=== PATIENT | male | born 1955 | race Hispanic/Latino ===

== ENCOUNTER 2017-07-12 16:04 | Observation (INO) | payer MEDICARE, OTHER ==
--- NOTE | 2017-07-12 17:03 | RAD ---
HISTORY: Chest pain COMPARISON: No prior. FINDINGS: LUNGS: The lungs are well inflated and clear. PLEURA: No significant pleural effusion identified, no pneumothorax apparent. CARDIOVASCULAR: Normal. OSSEOUS STRUCTURES: No significant abnormalities. VISUALIZED UPPER ABDOMEN: Normal. OTHER FINDINGS: None. IMPRESSION: No active pulmonary disease.
[2017-07-12 17:05] LABS: BASO # 0.01 K/mm3 (0.0-2.0); BASO % 0.2 % (0.0-3.0); EOS # 0.1 (0.0-0.7); EOS % 1.3 % (1.5-5.0); GRAN # 3.8 (1.4-6.5); GRAN % 70.3 % (50.0-68.0); HEMOGLOBIN 14.9 g/dL (14.0-18.0); LYMPH # 1.2 (1.2-3.4); LYMPH % 22.6 % (22.0-35.0); MEAN CELL VOLUME 82.2 fl (80.0-105.0); MEAN CORPUSCULAR HGB CONC 32.8 g/dl (31.0-37.0); MEAN PLATELET VOLUME 9.5 fl (7.0-11.0); MONO # 0.3 (0.1-0.6); MONO % 5.6 % (1.0-6.0); RBC 5.52 10^6/uL (3.5-6.1); RED CELL DISTRIBUTION WIDTH 13.8 % (11.5-14.5); WHITE BLOOD COUNT 5.4 10^3/ul (4.5-11.0)
[2017-07-12 17:18] LABS: ALB/GLOB RATIO 1.4 (1.1-1.8); ALBUMIN 4.8 g/dL (3.0-4.8); ALT/SGPT 50 U/L (7-56); AST/SGOT 31 U/L (17-59); BLOOD UREA NITROGEN 17 mg/dL (7-21); CALCIUM 10.3 mg/dL (8.4-10.5); GFR AFRICAN-AMERICAN > 60; GFR NON-AFRICAN AMERICAN > 60; LIPASE 139 U/L (23-300); MAGNESIUM 1.9 mg/dL (1.7-2.2)
[2017-07-12 17:35] LABS: TROPONIN I < 0.01 ng/mL
--- NOTE | 2017-07-12 18:58 | CT ---
PROCEDURE: CT HEAD WITHOUT CONTRAST. HISTORY: r/o ICH COMPARISON: None available. TECHNIQUE: Axial computed tomography images were obtained through the head/brain without intravenous contrast. Radiation dose: Total exam DLP = 1038.41 mGy-cm. This CT exam was performed using one or more of the following dose reduction techniques: Automated exposure control, adjustment of the mA and/or kV according to patient size, and/or use of iterative reconstruction technique. FINDINGS: HEMORRHAGE: No intracranial hemorrhage. BRAIN: Byrnes-white matter differentiation is preserved. There is no mass, mass effect or abnormal extra-axial fluid collection. VENTRICLES: The ventricles are normal in size, shape and configuration. CALVARIUM: There is no calvarial fracture or extracranial soft tissue swelling. PARANASAL SINUSES: Predominantly clear. MASTOID AIR CELLS: Predominantly clear. OTHER FINDINGS: None. IMPRESSION: No acute intracranial abnormality.
--- NOTE | 2017-07-12 19:30 | ED PDOC ---
Arrival/HPI - General Chief Complaint: Chest Pain Time Seen by Provider: 07/12/17 16:17 Historian: Patient - History of Present Illness Narrative History of Present Illness (Text): 07/12/17 19:27 A 61 year old male, whose past medical history includes diabetes and hypertension, presents to the emergency department complaining of intermittent substernal chest pain for the past 2-3 days. Patient notes mild nausea and occasional dizziness. She currently denies any pain or discomfort. Patient denies any fever, chills, vomiting, abdominal pain, shortness of breath, cough or any other complaints. 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 He had a stress test done over a year, and has not followed up since. Time/Duration: Other (2-3 days) Symptom Course: Intermittent Context: Home Past Medical History - Provider Review Nursing Documentation Reviewed: Yes - Infectious Disease Hx of Infectious Diseases: None - Cardiac Hx Hypertension: Yes - Pulmonary Hx Asthma: Yes - Endocrine/Metabolic Hx Diabetes Mellitus Type 2: Yes - Psychiatric Hx Substance Use: No Family/Social History - Physician Review Nursing Documentation Reviewed: Yes Family/Social History: CAD/NV (multiple family members with cardiac histories at an early age) Smoking Status: Never Smoked Hx Alcohol Use: Yes Frequency of alcohol use: Socially Hx Substance Use: No Allergies/Home Meds Allergies/Adverse Reactions: Allergies cimetidine [From Tagamet] Allergy (Verified 07/12/17 16:16) ANAPHYLAXIS Home Medications: Home Meds Medication Instructions Recorded Confirmed Unobtainable 07/12/17 07/12/17 Review of Systems - Physician Review All systems were reviewed & negative as marked: Yes - Review of Systems Constitutional: absent: Fevers, Night Sweats Respiratory: absent: SOB, Cough Cardiovascular: Chest Pain Gastrointestinal: Nausea. absent: Abdominal Pain, Vomiting Neurological: Dizziness Physical Exam Vital Signs Reviewed: Yes Vital Signs Temp Pulse Resp BP Pulse Ox 07/12/17 21:00 90 18 137/84 98 07/12/17 16:24 98.6 F 99 H 18 156/104 H 99 Temperature: Afebrile Blood Pressure: Hypertensive Pulse: Tachycardic Respiratory Rate: Normal Appearance: Positive for: Well-Appearing, Non-Toxic, Comfortable Pain Distress: None Mental Status: Positive for: Alert and Oriented X 3 - Systems Exam Head: Present: Atraumatic, Normocephalic Pupils: Present: PERRL Extroacular Muscles: Present: EOMI Conjunctiva: Present: Normal Mouth: Present: Moist Mucous Membranes Neck: Present: Normal Range of Motion Respiratory/Chest: Present: Clear to Auscultation, Good Air Exchange. No: Respiratory Distress, Accessory Muscle Use Cardiovascular: Present: Regular Rate and Rhythm, Normal S1, S2. No: Murmurs Abdomen: Present: Normal Bowel Sounds. No: Tenderness, Distention, Peritoneal Signs Back: Present: Normal Inspection Upper Extremity: Present: Normal Inspection. No: Cyanosis, Edema Lower Extremity: Present: Normal Inspection. No: Edema Neurological: Present: GCS=15, CN II-XII Intact, Speech Normal Skin: Present: Warm, Dry, Normal Color. No: Rashes Psychiatric: Present: Alert, Oriented x 3, Normal Insight, Normal Concentration Medical Decision Making ED Course and Treatment: 07/12/17 19:27 Impression: A 61 year old male with chest pain. Patient notes nausea and dizziness. Plan: -- Head CT -- Chest xray -- EKG -- Labs -- Urinalysis -- Aspirin and Zofran -- Reassess and disposition Progress Notes: EKG shows NSR at 99 BPM with normal intervals, normal axis. Interpreted by me. Report Date : 07/12/2017 17:01:18 Procedure: Chest xray Dictator : Leslie Juarez MD IMPRESSION: No active pulmonary disease. Report Date : 07/12/2017 18:56:33 PROCEDURE: CT HEAD WITHOUT CONTRAST. Dictator : Leslie Juarez MD IMPRESSION: No acute intracranial abnormality. 07/12/17 19:[address] Callaway, who accepts patient admission to telemetry observation. I have discussed the results and plan with the patient, who expresses understanding. - Lab Interpretations Lab Results: 07/12/17 16:45 07/12/17 16:45 Lab Results 07/12/17 16:45: D-Dimer, Quantitative < 200 07/12/17 16:45: Sodium 141, Potassium 4.9, Chloride 102, Carbon Dioxide 29, Anion Gap 15, BUN 17, Creatinine 1.1, Est GFR ( Amer) > 60, Est GFR (Non- Af Amer) > 60, Random Glucose 247 H, Calcium 10.3, Magnesium 1.9, Total Bilirubin 0.4, AST 31, ALT 50, Alkaline Phosphatase 69, Lactate Dehydrogenase 492, Total Creatine Kinase 89, Troponin I < 0.01, Total Protein 8.1, Albumin 4.8 , Globulin 3.3, Albumin/Globulin Ratio 1.4, Lipase 139 07/12/17 16:45: WBC 5.4, RBC 5.52, Hgb 14.9, Hct 45.4, MCV 82.2, MCH 27.0, MCHC 32.8, RDW 13.8, Plt Count 214, MPV 9.5, Gran % 70.3 H, Lymph % (Auto) 22.6, [place] % (Auto) 5.6, Eos % (Auto) 1.3 L, Baso % (Auto) 0.2, Gran # 3.80, Lymph # 1.2, [place] # 0.3, Eos # 0.1, Baso # 0.01 I have reviewed the lab results: Yes - RAD Interpretation Radiology Orders: 07/12/17 16:18 CHEST PORTABLE [RAD] Stat 07/12/17 16:41 HEAD W/O CONTRAST [CT] Stat - Medication Orders Current Medication Orders: Amlodipine Besylate (Norvasc) 5 mg PO DAILY [facility] Insulin Human Regular (Humulin R Med) 0 units SC ACHS [facility] PRN Reason: Protocol Last Admin: 07/12/17 21:48 Dose: Not Given Non-Admin Reason: Blood Sugar Parameter MAR Blood Glucose Document 07/12/17 21:48 CDE (Rec: 07/12/17 21:48 CDE [id number]) Blood Glucose Finger Stick Blood Glucose (70-120) 254 Discontinued Medications Aspirin (Aspirin) 325 mg PO STAT STA Stop: 07/12/17 16:20 Last Admin: 07/12/17 16:40 Dose: 325 mg Diphenhydramine HCl (Benadryl) 25 mg PO ONCE ONE Stop: 07/12/17 22:45 Ondansetron HCl (Zofran Inj) 4 mg IVP STAT STA Stop: 07/12/17 16:20 Last Admin: 07/12/17 16:40 Dose: 4 mg IVP Administration Document 07/12/17 16:40 EQ (Rec: 07/12/17 16:40 EQ [id number]) Charges for Administration # of IVP Administrations 1 - Scribe Statement The provider has reviewed the documentation as recorded by the Nile Dimas Provider Scribe Attestation: All medical record entries made by the Nile were at my direction and personally dictated by me. I have reviewed the chart and agree that the record accurately reflects my personal performance of the history, physical exam, medical decision making, and the department course for this patient. I have also personally directed, reviewed, and agree with the discharge instructions and disposition. Disposition/Present on Arrival - Present on Arrival Any Indicators Present on Arrival: No History of DVT/PE: No History of Uncontrolled Diabetes: No Urinary Catheter: No History of Decub. Ulcer: No History Surgical Site Infection Following: None - Disposition Have Diagnosis and Disposition been Completed?: Yes Diagnosis: Near syncope, Chest pain Disposition: HOSPITALIZED Disposition Time: 19:25 Condition: STABLE
[2017-07-12] MEDS: Insulin Reg-MEDIUM-Coverage SC SCH (21:48)
--- NOTE | 2017-07-12 21:48 | CARD ---
APPROVED REPORT EKG Measurement Heart [id number] NV [id number] [id number] <Conclusion> Normal sinus rhythm Cannot rule out Inferior infarct, age undetermined Abnormal ECG
[2017-07-12 22:34] LABS: URINE BILIRUBIN NEGATIVE (NEGATIVE); URINE BLOOD NEGATIVE (NEGATIVE); URINE GLUCOSE (UA) 500 mg/dL (NEGATIVE); URINE LEUKOCYTE ESTERASE NEGATIVE Leu/uL (NEGATIVE); URINE NITRATE NEGATIVE (NEGATIVE); URINE PROTEIN NEGATIVE mg/dL (<30 mg/dL); URINE UROBILINOGEN 0.2 E.U./dL (<1 E.U./dL)
[2017-07-12 22:36] LABS: URINE APPEARANCE CLEAR (CLEAR); URINE COLOR YELLOW (YELLOW)
[2017-07-13 03:47] LABS: HEMOGLOBIN 14.7 g/dL (14.0-18.0); MEAN CELL VOLUME 82.5 fl (80.0-105.0); MEAN CORPUSCULAR HEMOGLOBIN 27.1 pg (25.0-35.0); MEAN CORPUSCULAR HGB CONC 32.9 g/dl (31.0-37.0); MEAN PLATELET VOLUME 9.5 fl (7.0-11.0); RBC 5.42 10^6/uL (3.5-6.1); RED CELL DISTRIBUTION WIDTH 13.9 % (11.5-14.5)
[2017-07-13 04:05] LABS: ALB/GLOB RATIO 1.4 (1.1-1.8); ALBUMIN 4.5 g/dL (3.0-4.8); ALT/SGPT 51 U/L (7-56); AST/SGOT 33 U/L (17-59); BLOOD UREA NITROGEN 17 mg/dL (7-21); CALCIUM 9.6 mg/dL (8.4-10.5); GFR AFRICAN-AMERICAN > 60; GFR NON-AFRICAN AMERICAN > 60
[2017-07-13 04:20] LABS: TROPONIN I < 0.01 ng/mL
[2017-07-13 05:54] VITALS: O2SAT 97
--- NOTE | 2017-07-13 06:54 | HP ---
HISTORY OF PRESENT ILLNESS: I was called down to the ER to evaluate Nicolas. He comes in with a history of having intermittent chest pain for few days. He is with some mild nauseousness associated with dizziness and chest pain. No fever, chills, or vomiting. PAST MEDICAL HISTORY: Includes diabetes and hypertension and asthma. FAMILY HISTORY: There is CAD and MIs in the family. SOCIAL HISTORY: Never smoked. Occasional alcohol. No substance abuse. ALLERGIES: HE IS ALLERGIC TO TAGAMET. MEDICATIONS: He does not remember the medications he takes. REVIEW OF SYSTEMS: No acute vision or hearing loss. Nothing new. No sore throat. No neck pain. He does have chest pain, little bit of pressure and tightness. No shortness of breath. No coughing. No abdominal pain, nausea, vomiting or constipation or diarrhea. No problems urinating. No leg issues. He moves all 4 extremities, but a little bit dizzy. No swelling. PHYSICAL EXAMINATION GENERAL: He is well appearing. Nontoxic. Alert and oriented x3. VITAL SIGNS: He has 98.6 temperature, 99 pulse, 18 respiratory rate, 166/104 blood pressure, 99% O2 saturation on room air. HEENT: His head is atraumatic and normocephalic. Extraocular muscles are intact. Throat is moist. Thyroid midline. NECK: Supple. CARDIOPULMONARY: Regular rate. LUNGS: Decreased breath sounds, but clear to auscultation. ABDOMEN: Soft. Mildly obese. Nontender. Positive bowel sounds. No guarding. No rebound. No CVA tenderness. EXTREMITIES: Have no edema. He moves all 4 extremities. NEUROLOGIC: GCS is 15. Cranial nerves II to XII are grossly intact. LYMPHATIC: No palpable lymphadenopathy appreciated. SKIN: For the most part is intact. No apparent rashes or ulcers. LABORATORY DATA: He had a 5.4 white count, 14.9 hemoglobin, 45.4 hematocrit with a 214 platelets. The D-dimer is less than 200. He had a 149 of sodium, potassium 4.9, BUN 17, creatinine 1.1, GFR is greater than 60, sugars 247, calcium is 10.3, magnesium 1.9, total bilirubin is 0.4. AST is 31, ALT is 50, alkaline phosphatase 69, lactate dehydrogenase is 492. Total creatine kinase is 89. Troponin I is less than 0.01. Total protein is 8.1, albumin is 4.8, lipase is 139. Head CT and chest x-ray showed no acute intracranial abnormality and no acute pulmonary disease. IMPRESSION AND PLAN: He will be watched in [facility] under observation. He will have insulin coverage, Norvasc for his blood pressure, Zofran for nauseousness, and baby aspirin. He will have a consult with Dr. Croft, Cardiology. We will get troponins times 2 more, and we will watch him closely in observation, on telemetry. Jerel Callaway DO
[2017-07-13] MEDS: Insulin Reg-MEDIUM-Coverage SC SCH ×4 (08:31→22:15)
--- NOTE | 2017-07-13 09:30 | CON ---
DATE: 07/12/2017 CARDIOLOGY CONSULTATION HISTORY OF PRESENT ILLNESS: The patient is a 61-year-old male who presents with substernal chest discomfort which has lasted all day yesterday. These symptoms have actually caused him to decrease his walking which is called marked fatigue. There is questionable shortness of breath noted. PAST MEDICAL HISTORY: Includes hypertension, hypercholesterolemia as well as diabetes mellitus. FAMILY HISTORY: He has a strong family history for CAD including a twin who had a myocardial infarction this month. In addition, his father had triple-vessel bypass around his age as well. SOCIAL HISTORY: Does not smoke. REVIEW OF SYSTEMS: 14-point review of systems was reviewed in detail. No other cardiac symptomatology is noted. No peptic ulcer disease. NO ALLERGIES. He does have a previous admission for asthma. PHYSICAL EXAMINATION: VITAL SIGNS: Blood pressure 134/55, heart rate in the 80s. NECK: Negative JVD. LUNGS: Without rales. HEART: S1, S2. EXTREMITIES: Without edema. LABORATORY DATA: Glucose is 166, hemoglobin is 14.7. IMPRESSION: 1. Angina at rest. 2. High probability for coronary artery disease. 3. Diabetes mellitus. 4. Hypertension. 5. Hypercholesterolemia. 6. History of asthma. PLAN: Given these findings, we will start the patient on aspirin and dual antiplatelet therapy. I have discussed with the patient about his high risk for coronary artery disease, we will proceed to cardiac catheterization. Discussed risks, benefits in detail. The patient is agreeable. Spencer Croft MD
[2017-07-13] MEDS ORDERED: Lidocaine 2% Inj (20ml) ONE (12:55)
[2017-07-13] MEDS ORDERED: Midazolam 2 MG/2 ML VIAL ONE ×2 (12:56→13:28)
[2017-07-13] MEDS ORDERED: Nitroglycerin 50mg in D5W 0 MG/0 ML BOTTLE IV ONE (12:56)
[2017-07-13] MEDS ORDERED: HEPARIN SODIUM/NS 2,000 ML IV ONE (12:56)
[2017-07-13] MEDS ORDERED: Iodixanol 320 MG/ML 100 ML BOTTLE IV ONE (12:57)
[2017-07-13] MEDS ORDERED: Iohexol 350mgl/ml 50 ML ONE (12:57)
[2017-07-13] MEDS ORDERED: Iodixanol 320 MG/ML 200 ML BOTTLE IV ONE (12:57)
[2017-07-13] MEDS ORDERED: Sodium Chloride 0.9% 1,000 ML IV SCH (14:15)
[2017-07-13] MEDS: Oxycodone/Acetaminophen 5/325 mg Tab PO PRN ×2 (16:15→21:18)
--- NOTE | 2017-07-14 05:06 | DS ---
I saw Nicolas resting comfortably in the bed this morning. He slept well. He came in for chest pain, hypertension, also little bit of diabetes. He is currently doing well, in good spirit. He is eating well. No more chest pain. PHYSICAL EXAMINATION: VITAL SIGNS: He has 97.8 temperature, 80 pulse, 134/55 blood pressure, 18 respiratory rate, and 97% O2 saturation on room air. HEENT: Head, atraumatic and normocephalic. HEART: Regular rate. LUNGS: Clear to auscultation. ABDOMEN: Soft, mildly obese. EXTREMITIES: No edema. MEDICATIONS: He is currently on insulin coverage and Norvasc 5 mg daily. LABORATORY DATA: He has a white count of 6, hemoglobin of 14.7, hematocrit of 44.7, and platelet count of 223. His D-dimer is less than 200. He has 140 sodium, potassium 4.4, BUN 17, creatinine 1.2, GFR is greater than 60, sugar is 188, calcium is 9.6, magnesium is 1.9, total bilirubin is 0.5, AST is 33, ALT is 51, alkaline phosphatase is 63. All three troponin I is less than 0.01, total protein is 7.6. Urine was showing sugar, otherwise clean. We do not have his home medications. He was on insulin coverage and Norvasc. When he goes home, he will go back to his Regular Insulin or diabetes medication and his regular blood pressure medication. Dr. Croft should see him first before he goes to schedule an outpatient stress test or cath and he is doing quite well observation with chest pain with history of hypertension and diabetes. Jerel Callaway DO MTDD
[2017-07-14 06:37] LABS: BASO # 0.01 K/mm3 (0.0-2.0); BASO % 0.2 % (0.0-3.0); EOS # 0.1 (0.0-0.7); EOS % 2.3 % (1.5-5.0); GRAN # 4.1 (1.4-6.5); GRAN % 67.8 % (50.0-68.0); HEMOGLOBIN 13.9 g/dL (14.0-18.0); LYMPH # 1.4 (1.2-3.4); LYMPH % 22.7 % (22.0-35.0); MEAN CELL VOLUME 83.1 fl (80.0-105.0); MEAN CORPUSCULAR HGB CONC 32.6 g/dl (31.0-37.0); MEAN PLATELET VOLUME 9.5 fl (7.0-11.0); MONO # 0.4 (0.1-0.6); RBC 5.14 10^6/uL (3.5-6.1); RED CELL DISTRIBUTION WIDTH 13.7 % (11.5-14.5)
[2017-07-14 06:39] LABS: BLOOD UREA NITROGEN 18 mg/dL (7-21); CALCIUM 9.1 mg/dL (8.4-10.5); GFR AFRICAN-AMERICAN > 60; GFR NON-AFRICAN AMERICAN > 60
[2017-07-14] MEDS: Insulin Reg-MEDIUM-Coverage SC SCH ×2 (07:53→12:41)
--- NOTE | 2017-07-14 08:10 | CARDCATH ---
PROCEDURE DATE: 07/13/2017 HISTORY: The patient is a 61-year-old male with a strong family history for CAD with the father with a myocardial infarction in the age of 50 and a twin brother who had a myocardial infarction recently, who presents with angina. Because of this, cardiac catheterization was recommended. PROCEDURE: Left heart catheterization with coronary arteriography and left ventriculogram followed by percutaneous transluminal coronary angioplasty and stent of an left anterior descending. The right femoral artery was cannulated with 6-Portuguese sheath. There were no complications. I performed moderate sedation, which included the presence of an independent trained observer that assisted in monitoring the patient's level of consciousness and physiologic status. After administration of Versed and fentanyl, my intra service time was 30 minutes. The findings on catheterization revealed a left ventricle that contracted normally. Estimated ejection fraction is 55% to 60%. His coronary anatomy revealed a right dominant circulation. The RCA revealed intimal irregularities without significant stenoses. The left main artery was unremarkable. The LAD revealed intimal irregularities with an eccentric 70% to 80% stenosis in the midportion at the takeoff of a diagonal vessel. The diagonal vessel revealed intimal irregularities without critical lesions. The circumflex artery and obtuse marginal branches revealed diffuse intimal irregularities without critical lesions. Patient was started on intravenous Angiomax. On the fluoroscopic guide, the guiding catheter was placed in the ostium of the left main artery. An 0.014 ATW wire was placed in the LAD past critical lesion. A 2.5 x 14-mm drug-eluting stent was placed and deployed at 14 atmospheres of pressure. Repeat coronary arteriography revealed resolution of the lesion with no residual stenosis and BHARAT III flow. The patient tolerated the procedure well. Manual compression will be used to close the femoral artery site. The patient tolerated the procedure well. In summary, the procedure was successful PTCA and stent of a critically stenosed mid LAD stenosis. Cardiac catheterization revealed single-vessel CAD of the LAD with diffuse intimal irregularities throughout its coronary tree. LV function is normal. Given these findings, the patient will need to remain on aspirin indefinitely and Plavix for at least a year and undergo a strict cardiac risk reduction program. Spencer Croft MD [facility] # [id number]
--- NOTE | 2017-07-14 10:32 | PN ---
DATE: 07/14/2017 SUBJECTIVE: The patient is chest pain free. PHYSICAL EXAMINATION: VITAL SIGNS: Blood pressure is 132/83 and the heart rate in the 80s. NECK: Negative JVD. LUNGS: Without rales. HEART: Reveals S1 and S2. EXTREMITIES: Without edema. LABORATORY DATA: BUN and creatinine are normal. Glucose is 225 and hemoglobin is 13.9. IMPRESSION 1. Stable post percutaneous transluminal coronary angioplasty and stent of an left anterior descending. 2. Diabetes mellitus. 3. Strong family history for coronary artery disease. 4. Hypertension. 5. Hypercholesterolemia. PLAN: Given these findings, the is stable for discharge. He needs to go home on aspirin, FEN, atorvastatin, as well as strict control for blood pressure. Spencer Croft MD
--- NOTE | 2017-07-14 12:07 | DS ---
HISTORY OF PRESENT ILLNESS: He did well at last night. He is in good shape, good spirits. No complaint. He had a cardiac cath with Dr. Croft and 2 stents were placed. He has agnina at rest. He had CAD, diabetes, hypertension, high cholesterol. He has been going home today to follow up on the outpatient after Dr. Croft sees him this morning. He will be going home on his medications, Ecotrin, Effient, Lipitor, Norvasc, and Protonix. PHYSICAL EXAMINATION: VITAL SIGNS: 97.6 temperature, 88 pulse, 132/83 blood pressure, 20 respiratory rate, 97% O2 sat on room air. HEENT: Head is atraumatic and normocephalic. HEART: Regular rate. LUNGS: Clear to auscultation. ABDOMEN: Soft. EXTREMITIES: No edema. LABORATORY DATA: He has a 6 white count, 13.9 hemoglobin, 42.7 hematocrit with 218 platelets. He has a 139 sodium, potassium 4.2, BUN 18, creatinine 1.1, GFR is greater than 60, last blood sugar was 225 and calcium is 9.1. PLAN: Dr. Croft will see him this morning and he will be discharged later today. He will follow up on the outpatient in my office in a week. Jerel Callaway DO
[2017-07-14 13:17] VITALS: BP 148/97; PULSE 93; RESP 18; TEMP 97.8
--- NOTE | 2017-07-14 17:52 | CARD ---
APPROVED REPORT EKG Measurement Heart [id number] [place] 148P55 [id number] <Conclusion> Normal sinus rhythm Cannot rule out Inferior infarct, age undetermined Abnormal ECG
--- NOTE | 2017-07-14 18:05 | CARD ---
APPROVED REPORT EKG Measurement Heart [id number] SD 152P62 [id number] <Conclusion> Normal sinus rhythm Low voltage QRS Possible Inferior infarct, age undetermined Abnormal ECG
[2017-07-15] MEDS ORDERED: Pantoprazole 40 mg EC Tab PO SCH (07:30)
== END 2017-07-14 15:00 | disposition home or self-care (01) ==
LOC: ED 16:04 → ERH 19:26 → 2RSO 21:33
PROVIDERS: ADMIT Family Medicine; ATTEND Family Medicine
DX: I25.119 Atherosclerotic heart disease of native coronary artery with unspecified angina pectoris (principal); I10 Essential (primary) hypertension; E11.9 Type 2 diabetes mellitus without complications; J45.909 Unspecified asthma, uncomplicated; E78.00 Pure hypercholesterolemia, unspecified; R55 Syncope and collapse; Z82.49 Family history of ischemic heart disease and other diseases of the circulatory system
CPT/HCPCS: 36415; 70450; 71045; 80048; 80053; 81003; 82550; 82948; 83615; 83690; 83735; 84484; 85025; 85027; 85378; 93005; 93458; 96374; 99152; 99153; 99283; C1769; C1874; C1887; C2629; C9113; C9600; G0378; J0583; J1644; J2250; J2405; J3010; J7030; J7040; Q9967